=== PATIENT | male | born 2005 | race Caucasian/White ===

== ENCOUNTER 2024-08-26 11:19 | Emergency (ER) | payer MEDICAID ==
[~2024-08-26] VITALS: Ht 182.9 cm; Wt 100.0 kg
[2024-08-26 11:22] VITALS: O2SAT 98
[2024-08-26] MEDS: TETANUS, DIPHTHERIA, PERTUSSIS VAC/PF 0.5ML (>10YR OLD) IM ONE (12:23)
[2024-08-26 12:49] VITALS: BP 124/78; PULSE 78; RESP 18; TEMP 36.9; O2SAT 98
== END 2024-08-26 12:50 | disposition home or self-care (01) ==
LOC: ER 11:19
DX: S01.412A Laceration without foreign body of left cheek and temporomandibular area, initial encounter (principal); W45.8XXA Other foreign body or object entering through skin, initial encounter; Y93.89 Activity, other specified; Y92.89 Other specified places as the place of occurrence of the external cause; Y99.8 Other external cause status
CPT/HCPCS: 90715; 12011; 90471; 99283; Z7610